=== PATIENT | female | born 1945 ===

== ENCOUNTER → 2018-09-13 | Outpatient (REF) | payer MEDICARE ==
[2018-09-13 11:49] LABS: PLATELET COUNT, AUTOMATED 228 K/uL (150-450)
== END ==
PROVIDERS: ATTEND Nurse Practitioner Family
DX: L08.9 Local infection of the skin and subcutaneous tissue, unspecified (principal)
CPT/HCPCS: 82040; 82247; 82310; 82374; 82435; 82565; 82947; 84075; 84132; 84155; 84295; 84450; 84460; 84520; 85025